=== PATIENT | male | born 1980 | race African-American/Black ===

== ENCOUNTER 2017-04-10 03:45 | Emergency (ER) | payer SELFPAY ==
--- NOTE | 2017-04-10 03:54 | EDPHY ---
H & P HPI/ROS: HPI CHIEF COMPLAINT: Aggressive behavior, combativeness, possible drug intoxication HISTORY OF PRESENT ILLNESS: Patient 37-year-old male presents emergency room as a Trent Dillon, upon arrival to the ER he cannot participate in history and physical as he initially presented to police up in [place] with aggressive and combative behavior the make contact with him in a parking lot he was acting very strangely not making sense. Unclear if there was drug intoxication. He became very agitated combative with police EMS was called he was combative with EMS requiring 4 point restraints in transport he received a total of 15 mg of IM Versed prior to arrival. Upon arrival to the emergency room and ER room for he is breathing and has a heart rate however he is very sedated and lethargic and unable to participate in exam this time. The history and review of systems limited. EMS does report to me that he had 6-7 mm nonreactive pupils prior to medication. Past Medical History: Unknown medical history Past Surgical History: unknown surgical history Social History: Unknown at this time Family History: Unknown ROS REVIEW OF SYSTEMS: Very limited at this time due to patient's mental state and IM chemical sedation prior to arrival Exam Constitutional maintaining his airway, triage nursing summary reviewed, vital signs reviewed, lethargic, sleeping. Eyes normal conjunctivae and sclera, EOMI, PERRLA. HENT normal inspection, atraumatic, moist mucus membranes, no epistaxis, neck supple/ no meningismus, no raccoon eyes. Respiratory clear to auscultation bilaterally, normal breath sounds, no respiratory distress, no wheezing. Cardiovascular rate normal, regular rhythm, no murmur, no edema, distal pulses normal. Gastrointestinal soft, non-tender, no rebound, no guarding, normal bowel sounds, no distension, no pulsatile mass. Genitourinary no CVA tenderness. Musculoskeletal no midline vertebral tenderness, full range of motion, no calf swelling, no tenderness of extremities, no meningismus, good pulses, neurovascularly intact. Skin pink, warm, & dry, no rash, skin atraumatic. Neurologic lethargic. Minimally responsive due to medications prior to arrival. Heme/Lymph/Immune no lymphadenopathy. Differential Diagnosis: Includes but is not limited to in a particular order drug intoxication, excited delirium, dehydration, electrolyte disturbance, rhabdomyolysis, closed head injury, intracranial bleed. 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 Will stay on full monitor and watch for further sedation. Re-evaluation: 0421AM: At this time is arrived. She tells me that he has no significant medical history except for hypertension she reports to me that they were at a friend's house she was outside in the car smoking cigarettes with her girlfriend was called inside as he was acting somewhat strange is starting to get loud he was asked to leave. Reports to me that he may have been doing Mya or LSD this evening. She states that she put him in the car he started getting agitated the car had to tree puller and he got out of the car he was in a parking lot screaming this is when police made contact with him. She reports no history of significant drug use but most likely did LSD remotely this evening. 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 CT scan of the head without IV contrast. The results of the study are negative for acute traumatic injury. The study was read by Dr. Ramirez. I viewed the images myself on the PACS system. CT scan of the cervical spine without IV contrast The results of the study are negative for acute traumatic injury The study was read by Dr. Ramirez. I viewed the images myself on the PACS system. 0532AM: Re-evaluation at this time patient is resting comfortably. He is nail more responsive. Mumbling. Moving his head. Taking deep breaths. On evaluation of his right scapula there is a linear vertical oriented laceration that will require suture repair. Laceration Repair Procedure: Verbal Consent was obtained, Under sterile conditions, The patient had lidocaine with epinephrine used approximately 5ccs to local anesthetize the right scapula vertical 7 cm Laceration. The wound was copiously irrigated with sterile fluid, the wound was explored for foreign bodies there were none visualized, the wound was explored with a sterile glove to the base. There are no deep structures involved, including no arterial injury. Seven interrupted 5.O Prolene Sutures were placed in this patient's laceration. He had good close approximation of the wound edges. He Tolerated this well. Source: Patient, Police, EMS Constitutional: Initial Vital Signs Temperature (C) 36.6 C 04/10/17 03:50 Heart Rate 84 04/10/17 03:50 Respiratory Rate 16 04/10/17 03:50 Blood Pressure 124/74 H 04/10/17 03:50 O2 Sat (%) 95 04/10/17 03:50 O2 Delivery Mode Room Air O2 (L/minute) 2 Allergies/Adverse Reactions: Unable to Assess Allergy (Unverified 04/10/17 04:06) Home Medications: Medication Instructions Recorded Unobtainable 04/10/17 Medical Decision Making - Data Points Laboratory Results: Laboratory Results 04/10/17 04:03 04/10/17 04:03 04/10/17 04/10/17 04:03 04:03 WBC 11.18 10^3/uL H 10^3/uL (3.80-9.50) RBC 5.45 10^6/uL 10^6/uL (4.40-6.38) Hgb 14.9 g/dL g/dL (13.7-17.5) Hct 44.3 % % (40.0-51.0) MCV 81.3 fL L fL (81.5-99.8) MCH 27.3 pg L pg (27.9-34.1) MCHC 33.6 g/dL g/dL (32.4-36.7) RDW 15.0 % % (11.5-15.2) Plt Count 288 10^3/uL 10^3/uL (150-400) MPV 10.4 fL fL (8.7-11.7) Neut % (Auto) 74.6 % H % (39.3-74.2) Lymph % (Auto) 16.9 % % (15.0-45.0) [place] % (Auto) 7.2 % % (4.5-13.0) Eos % (Auto) 0.8 % % (0.6-7.6) Baso % (Auto) 0.2 % L % (0.3-1.7) Nucleat RBC Rel Count 0.0 % % (0.0-0.2) Absolute Neuts (auto) 8.35 10^3/uL H 10^3/uL (1.70-6.50) Absolute Lymphs (auto) 1.89 10^3/uL 10^3/uL (1.00-3.00) Absolute Monos (auto) 0.80 10^3/uL 10^3/uL (0.30-0.80) Absolute Eos (auto) 0.09 10^3/uL 10^3/uL (0.03-0.40) Absolute Basos (auto) 0.02 10^3/uL 10^3/uL (0.02-0.10) Absolute Nucleated RBC 0.00 10^3/uL 10^3/uL (0-0.01) Immature Gran % 0.3 % % (0.0-1.1) Immature Gran # 0.03 10^3/uL 10^3/uL (0.00-0.10) Sodium 141 mEq/L mEq/L (134-144) Potassium 3.6 mEq/L mEq/L (3.5-5.2) Chloride 105 mEq/L mEq/L (97-110) Carbon Dioxide 24 mEq/l mEq/l (22-31) Anion Gap 12 mEq/L mEq/L (8-16) BUN 20 mg/dL mg/dL (7-23) Creatinine 1.0 mg/dL mg/dL (0.7-1.3) Estimated GFR > 60 Glucose 95 mg/dL mg/dL (70-100) Calcium 9.9 mg/dL mg/dL (8.5-10.4) Creatine Kinase 439 IU/L H IU/L (0-224) CK-MB (CK-2) Fraction 1.70 ng/mL ng/mL (0-3.19) CK-MB (CK-2) % 0.4 % % (0.0-4.0) Creatine Kinase Interp NEGATIVE (NEGATIVE) Salicylates < 1.0 mg/dL L mg/dL (2.0-20.0) Acetaminophen < 10 mcg/mL L mcg/mL (10.0-30.0) Ethyl Alcohol < 10 mg/dL mg/dL (0-10) Medications Given: Discontinued Medications Sodium Chloride (Ns) 1,000 mls @ 0 mls/hr IV ONCE ONE PRN Reason: Wide Open Stop: 04/10/17 03:51 Last Admin: 04/10/17 04:13 Dose: 1,000 mls Sodium Chloride (Ns) 1,000 mls @ 0 mls/hr IV ONCE ONE PRN Reason: Wide Open Stop: 04/10/17 03:51 Last Admin: 04/10/17 05:00 Dose: 1,000 mls Departure - Departure Disposition: Home, Routine, Self-Care Clinical Impression: Laceration Altered mental status Qualifiers: Altered mental status type: unspecified Qualified Code(s): R41.82 - Altered mental status, unspecified Condition: Good Instructions: Care For Your Stitches (ED), Laceration (ED) Additional Instructions: 1. Please keep your wound clean dry and protected. You may get warm soapy water on it and shower. 2. Your sutures need to be removed in 10 days. Referrals: Patient,NotPresent [Unknown] - As per Instructions
[2017-04-10 04:13] VITALS: RESP 16
[2017-04-10] MEDS: NS 1,000 ML IV ONE ×2 (04:13→05:00)
[2017-04-10 04:17] LABS: % IMMATURE GRANULYOCYTES 0.3 % (0.0-1.1); ABSOLUTE IMMATURE GRANULOCYTES 0.03 10^3/uL (0.00-0.10); ADD DIFF? NO; ADD MORPH? NO; ADD SCAN? NO; ATYPICAL LYMPHOCYTE FLAG 10 (0-99); FRAGMENT RBC FLAG 0 (0-99); HEMATOCRIT 44.3 % (40.0-51.0); HEMOGLOBIN 14.9 g/dL (13.7-17.5); LEFT SHIFT FLG 0 (0-99); LIPEMIA HEMOLYSIS FLAG 80 (0-99); MEAN CELL HEMOGLOBIN 27.3 pg (27.9-34.1); MEAN CELL HEMOGLOBIN CONCENTR. 33.6 g/dL (32.4-36.7); MEAN CELL VOLUME 81.3 fL (81.5-99.8); MEAN PLATELET VOLUME 10.4 fL (8.7-11.7); PLATELET CLUMPS FLAG 0 (0-99); PLATELET COUNT 288 10^3/uL (150-400); RED BLOOD CELL COUNT 5.45 10^6/uL (4.40-6.38)
[2017-04-10 04:25] LABS: ANION GAP 12 mEq/L (8-16); CALCIUM 9.9 mg/dL (8.5-10.4); CARBON DIOXIDE 24 mEq/l (22-31); CHLORIDE 105 mEq/L (97-110); ETHANOL SERUM < 10 mg/dL (0-10); GLOMERULAR FILTRATION RATE > 60; GLUCOSE 95 mg/dL (70-100); POTASSIUM 3.6 mEq/L (3.5-5.2); SALICYLATE < 1.0 mg/dL (2.0-20.0); SODIUM 141 mEq/L (134-144)
[2017-04-10 04:48] LABS: CK-MB INTERPRETATION NEGATIVE (NEGATIVE)
[2017-04-10 08:08] VITALS: BP 118/75; PULSE 76; TEMP 97.7; O2SAT 97
== END 2017-04-10 08:18 | disposition home or self-care (01) ==
LOC: EDBD 03:45
PROC: 0HQBXZZ Repair Right Upper Arm Skin, External Approach (ICD-10-PCS; principal; 2017-04-10)
DX: S41.011A Laceration without foreign body of right shoulder, initial encounter (principal); R41.82 Altered mental status, unspecified; X58.XXXA Exposure to other specified factors, initial encounter; Y93.89 Activity, other specified
CPT/HCPCS: 80305; G0480